=== PATIENT | male | born 1990 | race Hispanic/Latino ===

== ENCOUNTER → 2016-06-10 | Outpatient (CLI) | payer OTHER ==
--- NOTE | 2016-06-11 03:01 | REP ---
Clinical: Trauma. Rule out fracture. Technique: AP, lateral, bilateral oblique views of the left ankle. Findings: Lateral soft tissue swelling is appreciated. There is a well corticated small fragment along the fibular tip which may reflect old avulsion injury. Correlation is recommended and no obvious acute fracture is otherwise identified. Joint spaces and ankle mortise are intact. Impression: Lateral soft tissue swelling and findings to suggest small old lateral a avulsion fracture. No obvious acute fracture. Signed by Arthur Rosas MD 06/11/2016 02:54 A
== END ==
LOC: M RAD 08:54
PROVIDERS: ATTEND Surgery
DX: S93.402A Sprain of unspecified ligament of left ankle, initial encounter (principal); X58.XXXA Exposure to other specified factors, initial encounter; Y92.9 Unspecified place or not applicable; Y93.9 Activity, unspecified; Y99.9 Unspecified external cause status